=== PATIENT | female | born 1955 | race Hispanic/Latino ===

== ENCOUNTER 2018-08-23 07:52 | Emergency (ER) | payer BC, OTHER ==
--- OUTSIDE RECORDS SUMMARY | 2018-08-23 07:55 | XMS REPORT ---
:1955 [facility] Address [address] [place] [address] Dr. Lentz. [address] [place] [id number] Care Team Providers Name Role Phone Unavailable Unavailable Unavailable Problems This patient has no known problems. Allergies, Adverse Reactions, Alerts This patient has no known allergies or adverse reactions. Medications This patient has no known medications.
[2018-08-23] MEDS ORDERED: DEXAMETHASONE 10 MG/ML VIAL ONE (08:28)
[2018-08-23] MEDS ORDERED: MEPERIDINE HCL 25 MG/0.5 ML ONE (08:28)
[2018-08-23] MEDS ORDERED: ONDANSETRON 4 MG/2 ML VIAL ONE (08:29)
[2018-08-23 08:32] LABS: Absolute Lymphocytes (CBC) 2.4 K/uL (0.7-4.9); Absolute Monocytes 0.4 K/uL (0.1-1.3); Absolute Neutrophil 3.3 K/uL (1.8-8.0); Basophils % 0.4 % (0-1.3); Eosinophils % 2.4 % (0-4.4); Hematocrit 39.8 % (36.0-45.0); Lymphocytes % 37.9 % (15.3-44.8); MPV 8.9 fL (7.6-11.3); Monocytes % 6.6 % (3.3-12.3); RBC Red Blood Cell Count 4.51 M/uL (3.86-4.86)
[2018-08-23 08:39] LABS: Potassium 3.7 mmol/L (3.5-5.1)
--- NOTE | 2018-08-23 09:11 | RAD REPORT ---
EXAM DESCRIPTION: CT - Stone Protocol - 08/23/2018 8:46 am CLINICAL HISTORY: Flank pain. right flank/back pain COMPARISON: <Comparisons> TECHNIQUE: Axial images were obtained without oral or IV contrast. Lack of contrast limits solid org an and vascular assessment. The [id number] spans the entirety of the system partially obscuring uppermost abdomen and lung bases. Coronal reformatted images were obtained and reviewed. All CT scans are performed using dose optimization technique as appropriate and may include automated exposure control or mA/KV adjustment according to patient size. FINDINGS: The lower lung carr are clear. Cholecystectomy. Imaged portions of the liver and spleen show no suspicious findings on non-contrast imaging. The panc reas and adrenal glands are normal. No pathologic lymphadenopathy in the abdomen or pelvis. No urinary tract stones or obstructive uropathy. No bowel obstruction, free air, free fluid or abscess. Normal appendix noted.Diverticulosis coli is s een without diverticulitis. Fat containing umbilical hernia is seen, moderate in size. No significant bony abnormality. IMPRESSION: No urinary tract stones or obstructive uropathy.
[2018-08-23] MEDS ORDERED: MORPHINE 2 MG/ML SYR ONE (09:13)
[2018-08-23] MEDS ORDERED: KETOROLAC 30 MG/ML INJ ONE (09:31)
--- NOTE | 2018-08-23 09:34 | EDPHYS ---
Physician Documentation [facility] Name: Serenity Silva Age: 62 yrs Sex: Female : 1955 Arrival Date: 08/23/2018 Time: 07:55 Bed 20 Private MD: None, None ED Physician Jassi Funk HPI: 08/23 09:00 This 62 yrs old Female presents to ER via Wheelchair with complaints of rn Abdominal Pain, Back Pain, Leg Pain. 09:00 The patient presents with pain that is acute. The symptoms are located in the low back. rn Onset: The symptoms/episode began/occurred this morning. The pain radiates to the right leg. Associated signs and symptoms: Pertinent negatives: chest pain, constipation, fever, hematuria, incontinence, urinary retention, weakness. Associated signs and symptoms: Pertinent negatives:. Modifying factors: The patient symptoms are alleviated by remaining still, the patient symptoms are aggravated by any movement. Severity of symptoms: At their worst the symptoms were moderate, in the emergency department the symptoms are unchanged. The patient has not experienced similar symptoms in the past. REports right low back pain, began this morning, worse with twisting and touching area, no fever or urinary symptoms, pain is causing nausea, took pain pill then felt "knot in upper stomach". Now pain in stomach is gone. NO hx of kidney stones. Reports pain radiates down right leg. No weakness.. Historical: - Allergies: 08:12 No Known Allergies; em - PMHx: 08:12 None; em - PSHx: 08:12 Cholecystectomy; em - Immunization history:: Adult Immunizations up to date. - Social history:: Smoking status: Patient/guardian denies using tobacco. - Ebola Screening: : Patient negative for fever greater than or equal to 101.5 degrees Fahrenheit, and additional compatible Ebola Virus Disease symptoms Patient denies exposure to infectious person Patient denies travel to an Ebola-affected area in the 21 days before illness onset No symptoms or risks identified at this time. - Family history:: not pertinent. - Hospitalizations: : No recent hospitalization is reported. ROS: 09:00 Constitutional: Negative for fever, chills, and weight loss, Eyes: Negative for injury, rn pain, redness, and discharge, Neck: Negative for injury, pain, and swelling, Cardiovascular: Negative for chest pain, palpitations, and edema, Respiratory: Negative for shortness of breath, cough, wheezing, and pleuritic chest pain, Abdomen/GI: Negative for current abdominal pain, vomiting, diarrhea, and constipation, Back: + right low back pain MS/Extremity: Negative for injury and deformity, Skin: Negative for injury, rash, and discoloration, Neuro: Negative for headache, weakness, and seizure. Exam: 09:00 Constitutional: This is a well developed, well nourished patient who is awake, alert, rn appears uncomfortable Head/Face: Normocephalic, atraumatic. ENT: MMM Abdomen/GI: soft, non-tender, neg ruvalcaba, no peritoneal signs Back: No spinal tenderness. No costovertebral tenderness. Painful with twisting and palpation of right lower perilumbar region, no mendoza sor skin changes Skin: Warm, dry with normal turgor. Normal color with no rashes, no lesions, and no evidence of cellulitis. MS/ Extremity: Pulses equal, no cyanosis. Neurovascular intact. Full, normal range of motion. Equal circumference. Neuro: Awake and alert, GCS 15, oriented to person, place, time, and situation. Motor strength 5/5 in all extremities. Sensory grossly intact. Vital Signs: 08:12 BP 147 / 60; Pulse 58; Resp 18; Temp 98.1(TE); Pulse Ox 99% on R/A; Weight 86.18 kg; em Height 5 ft. 0 in. (152.40 cm); Pain 10/10; 08:57 BP 123 / 66; Pulse 56; Resp 20; Pulse Ox 100% on R/A; Pain 9/10; em 08:12 Body Mass Index 37.11 (86.18 kg, 152.40 cm) em MDM: 07:59 Patient medically screened. rn 09:33 Differential diagnosis: arthritis, Fatigue Ureterolithiasis muscle spasm, rn radiculopathy. Data reviewed: vital signs, nurses notes, lab test result(s), radiologic studies, CT scan, and as a result, I will discharge patient. Counseling: I had a detailed discussion with the patient and/or guardian regarding: the historical points, exam findings, and any diagnostic results supporting the discharge/admit diagnosis, lab results, radiology results, the need for outpatient follow up, to return to the emergency department if symptoms worsen or persist or if there are any questions or concerns that arise at home. Response to treatment: the patient's symptoms have mildly improved after treatment, and as a result, I will discharge patient. Special discussion: I discussed with the patient/guardian in detail that at this point there is no indication for admission to the hospital. It is understood, however, that if the symptoms persist or worsen the patient needs to return immediately for re-evaluation. Based on the history and exam findings, there is no indication for further emergent testing or inpatient evaluation. I discussed with the patient/guardian the need to see the primary care provider for further evaluation of the symptoms. 08/23 08:09 Order name: CBC with Diff; Complete Time: 08:43 rn 08/23 08:09 Order name: Basic Metabolic Panel; Complete Time: 08:43 rn 08/23 08:09 Order name: CT Stone Protocol; Complete Time: 09:14 rn 08/23 08:09 Order name: IV Start; Complete Time: 08:21 rn Administered Medications: 08:09 CANCELLED (Duplicate Order): Demerol - Meperidine 12.5 mg IVP once rn 08:21 Drug: Zofran 4 mg Route: IVP; Site: right antecubital; iw 08:57 Follow up: Response: No adverse reaction; Nausea is decreased em 08:23 Drug: Decadron - Dexamethasone 10 mg Route: IVP; Site: right antecubital; iw 08:58 Follow up: Response: No adverse reaction em 08:27 Drug: Demerol 25 mg Route: IVP; Site: right antecubital; iw 08:58 Follow up: Response: No adverse reaction; Pain is unchanged, physician notified em 09:06 Drug: morphine 2 mg Route: IVP; Site: right antecubital; iw 09:22 Follow up: Response: No adverse reaction; Pain is unchanged, physician notified em 09:25 Drug: TORadol 30 mg Route: IVP; Site: right antecubital; iw Disposition: 08/23/18 09:34 Discharged to Home. Impression: Muscle spasm of back, Radiculopathy, lumbosacral region. - Condition is Stable. - Discharge Instructions: Lumbosacral Radiculopathy, Muscle Cramps and Spasms. - Prescriptions for Tylenol- Codeine #3 300-30 mg Oral Tablet - take 1 tablet by ORAL route every 6 hours As needed; 15 tablet. Cyclobenzaprine 10 mg Oral Tablet - take 1 tablet by ORAL route every 8 hours As needed; 20 tablet. Medrol (Masood) 4 mg Oral Tablets, Dose Pack - take 1 tablet by ORAL route as directed - follow package instructions; 1 packet. - Medication Reconciliation Form, Thank You Letter, Antibiotic Education, Prescription Opioid Use form. - Follow up: Private Physician; When: As needed; Reason: Recheck today's complaints, Re-evaluation by your physician. - Problem is new. - Symptoms have improved. Signatures: Dispatcher [employer] EDMS Herbert Breaux, LONG TERM CARE SOCIAL WORKER LONG TERM CARE SOCIAL WORKER Mary Obregon RN RN iw Jassi Funk MD MD burnisher: (The following items were deleted from the chart) 08:09 08:09 Demerol - Meperidine 12.5 mg IVP once ordered. rn rn 09: 09:00 Constitutional: Negative for fever, chills, and weight loss, Eyes: Negative for rn injury, pain, redness, and discharge, Neck: Negative for injury, pain, and swelling, Cardiovascular: Negative for chest pain, palpitations, and edema, Respiratory: Negative for shortness of breath, cough, wheezing, and pleuritic chest pain, Abdomen/GI: Negative for abdominal pain, nausea, vomiting, diarrhea, and constipation, Back: + right low back pain MS/Extremity: Negative for injury and deformity, Skin: Negative for injury, rash, and discoloration, Neuro: Negative for headache, weakness, and seizure, rn 09: 09:00 Constitutional: Negative for fever, chills, and weight loss, Eyes: Negative for rn injury, pain, redness, and discharge, Neck: Negative for injury, pain, and swelling, Cardiovascular: Negative for chest pain, palpitations, and edema, Respiratory: Negative for shortness of breath, cough, wheezing, and pleuritic chest pain, Abdomen/GI: Negative for abdominal pain, vomiting, diarrhea, and constipation, Back: + right low back pain MS/Extremity: Negative for injury and deformity, Skin: Negative for injury, rash, and discoloration, Neuro: Negative for headache, weakness, and seizure, rn 09:59 09:34 08/23/2018 09:34 Discharged to Home. Impression: Muscle spasm of back; iw Radiculopathy, lumbosacral region. Condition is Stable. Forms are Medication Reconciliation Form, Thank You Letter, Antibiotic Education, Prescription Opioid Use. Follow up: Private Physician; When: As needed; Reason: Recheck today's complaints, Re-evaluation by your physician. Problem is new. Symptoms have improved. rn
--- NOTE | 2018-08-23 09:34 | ER ---
Nurse's Notes [facility] Name: Serenity Sliva Age: 62 yrs Sex: Female : 1955 Arrival Date: 08/23/2018 Time: 07:55 Bed 20 Private MD: None, None Diagnosis: Muscle spasm of back;Radiculopathy, lumbosacral region Presentation: 08/23 08:09 Presenting complaint: Patient states: right sided lower back pain that radiates down em right leg that began yesterday evening, denies trauma, numbness or tingling, also reports taking a tylenol #3 and became nauseous, denies abdominal pain. Transition of care: patient was not received from another setting of care. Onset of symptoms was August 22, 2018. Risk Assessment: Do you want to hurt yourself or someone else? Patient reports no desire to harm self or others. Initial Sepsis Screen: Does the patient meet any 2 criteria? No. Patient's initial sepsis screen is negative. Does the patient have a suspected source of infection? No. Patient's initial sepsis screen is negative. Care prior to arrival: None. 08:09 Method Of Arrival: Wheelchair em 08:14 Acuity: SILVANA 3 iw Triage Assessment: 08:12 General: Appears in no apparent distress. uncomfortable, Behavior is cooperative, em anxious, Denies fever. Pain: Complains of pain in right lower back Pain currently is 10 out of 10 on a pain scale. GI: Abdomen is flat, Abd is soft and non tender X 4 quads. Historical: - Allergies: 08:12 No Known Allergies; em - PMHx: 08:12 None; em - PSHx: 08:12 Cholecystectomy; em - Immunization history:: Adult Immunizations up to date. - Social history:: Smoking status: Patient/guardian denies using tobacco. - Ebola Screening: : Patient negative for fever greater than or equal to 101.5 degrees Fahrenheit, and additional compatible Ebola Virus Disease symptoms Patient denies exposure to infectious person Patient denies travel to an Ebola-affected area in the 21 days before illness onset No symptoms or risks identified at this time. - Family history:: not pertinent. - Hospitalizations: : No recent hospitalization is reported. Screenin:09 Abuse screen: Denies threats or abuse. Nutritional screening: No deficits noted. em Tuberculosis screening: No symptoms or risk factors identified. Fall Risk None identified. Assessment: 08:09 Pain: Complains of pain in right lower back Pain radiates to right leg Pain currently em is 10 out of 10 on a pain scale. Pain began 1 day ago. Is continuous, Aggravated by repositioning, weight bearing. Neuro: Level of Consciousness is awake, alert, obeys commands, Oriented to person, place, time, situation, Speech is normal, Intact. Cardiovascular: Capillary refill < 3 seconds Patient's skin is warm and dry. Respiratory: Airway is patent Respiratory effort is even, unlabored, Respiratory pattern is regular, symmetrical. GI: Abdomen is round non-distended, Bowel sounds present X 4 quads. Abd is soft and non tender X 4 quads. Reports nausea, Patient currently denies abdominal pain, vomiting. : Denies burning with urination. EENT: No signs and/or symptoms were reported regarding the EENT system. Derm: Skin is intact, is healthy with good turgor, Skin is pink, warm \T\ dry. Musculoskeletal: Circulation, motion, and sensation intact. Capillary refill < 3 seconds, Range of motion: intact in right knee and right ankle limited in right hip. 08:20 Reassessment: Patient appears in no apparent distress at this time. I agree with above iw assessment by Herbert Breaux LVN. 08:55 Reassessment: reports pain is 9/10, also complaining of abdominal cramping, described em as feeling bloated, provider notified, new medication orders received. Vital Signs: 08:12 BP 147 / 60; Pulse 58; Resp 18; Temp 98.1(TE); Pulse Ox 99% on R/A; Weight 86.18 kg; em Height 5 ft. 0 in. (152.40 cm); Pain 10/10; 08:57 BP 123 / 66; Pulse 56; Resp 20; Pulse Ox 100% on R/A; Pain 9/10; em 08:12 Body Mass Index 37.11 (86.18 kg, 152.40 cm) em ED Course: 07:55 Patient arrived in ED. mr 07:56 None, None is Private Physician. mr 07:59 Jassi Funk MD is Attending Physician. rn 08:09 Herbert Breaux LVN is Primary Nurse. em 08:12 Arm band placed on. em 08:14 Triage completed. iw 08:21 Basic Metabolic Panel Sent. mh5 08:21 CBC with Diff Sent. mh5 08:23 Patient has correct armband on for positive identification. Placed in gown. Bed in low mh5 position. Call light in reach. Side rails up X 1. Adult w/ patient. Warm blanket given. Pulse ox on. NIBP on. 08:23 Initial lab(s) drawn, by me, sent to lab. Inserted saline lock: 22 gauge in right mh5 antecubital area, using aseptic technique. Blood collected. 08:46 CT completed. Patient tolerated procedure well. Patient moved to CT. Patient moved back mw3 from CT. 08:47 CT Stone Protocol In Process Unspecified. EDMS 09:51 IV discontinued, Pressure dressing applied. mh5 09:59 No provider procedures requiring assistance completed. iw 09:59 IV discontinued, intact, bleeding controlled, No redness/swelling at site. Pressure iw dressing applied. Administered Medications: 08:09 CANCELLED (Duplicate Order): Demerol - Meperidine 12.5 mg IVP once rn 08:21 Drug: Zofran 4 mg Route: IVP; Site: right antecubital; iw 08:57 Follow up: Response: No adverse reaction; Nausea is decreased em 08:23 Drug: Decadron - Dexamethasone 10 mg Route: IVP; Site: right antecubital; iw 08:58 Follow up: Response: No adverse reaction em 08:27 Drug: Demerol 25 mg Route: IVP; Site: right antecubital; iw 08:58 Follow up: Response: No adverse reaction; Pain is unchanged, physician notified em 09:06 Drug: morphine 2 mg Route: IVP; Site: right antecubital; iw 09:22 Follow up: Response: No adverse reaction; Pain is unchanged, physician notified em 09:25 Drug: TORadol 30 mg Route: IVP; Site: right antecubital; iw Outcome: 09:34 Discharge ordered by . rn 09:59 Discharged to home via wheelchair, with family. iw 09:59 Condition: good 09:59 Discharge instructions given to patient, family, Instructed on discharge instructions, follow up and referral plans. medication usage, Demonstrated understanding of instructions, follow-up care, medications, Prescriptions given X 3. 09:59 Patient left the ED. iw Signatures: Dispatcher [employer] AYOLucero Belcher mr Saeid, Herbert, MATERIAL HANDLING SUPERVISOR MATERIAL HANDLING SUPERVISOR em Mary Arciniega, Jassi Katz RN, MD MD rn Martinez, Maria [facility] Deyanira Ruano 3 Corrections: (The following items were deleted from the chart) 08:58 08:58 Response: No adverse reaction em em
[2018-08-23 11:07] VITALS: TEMP 98.1
[2018-08-23 11:08] VITALS: BP 123/66; O2SAT 100
== END 2018-08-23 09:59 | disposition home or self-care (01) ==
LOC: ER 07:52
DX: M54.17 Radiculopathy, lumbosacral region (principal); M62.830 Muscle spasm of back
CPT/HCPCS: 36415; 74176; 76377; 80048; 85025; 96374; 96375; 99284; J1100; J2175; J2270; J2405